=== PATIENT | female | born 1975 | race Caucasian/White ===

== ENCOUNTER 2020-07-09 08:21 | Day surgery (SDC) | payer MEDICAID ==
[2020-07-09] MEDS ORDERED: Propofol 200 MG/20 ML SDV ONE (08:37)
[2020-07-09] MEDS ORDERED: fentaNYL 250 MCG/5 ML SDV ONE ×2 (08:37→13:12)
[2020-07-09] MEDS ORDERED: Rocuronium 50 MG/5 ML Vial ONE ×2 (08:37→13:01)
[2020-07-09] MEDS ORDERED: Neostigmine Methylsulfate 1 MG/ML 5 ML Syringe ONE (08:37)
[2020-07-09] MEDS ORDERED: Ondansetron 4 MG/2 ML SDV ONE (08:37)
[2020-07-09] MEDS ORDERED: Dexamethasone 4 MG/ML SDV ONE (08:37)
[2020-07-09] MEDS ORDERED: Glycopyrrolate 0.2 MG/ML 5 ML MDV ONE (08:37)
[2020-07-09] MEDS: Nozin Nasal Sanitizer NASBOTH ONE (09:09)
[2020-07-09] MEDS: Lactated Ringers 1,000 ML IV SCH (09:16)
[2020-07-09] MEDS: Clindamycin Phosphate 900 MG in Sodium Chloride 0.9% 100 ML IV ONE (12:19)
[2020-07-09] MEDS ORDERED: Lactated Ringers 1,000 ML ONE (13:42)
[2020-07-09] MEDS ORDERED: Bupivacaine 0.5% 30 ML SDV ONE (13:53)
[2020-07-09] MEDS: Bupivacaine 0.5% 50 ML MDV ONE (14:50)
[2020-07-09] MEDS ORDERED: Ketorolac 60 MG/2 ML SDV IVPUSH ONE (15:09)
[2020-07-09] MEDS: Ketorolac 30 MG/ML SDV IVPUSH ONE (15:18)
[2020-07-09] MEDS: Acetaminophen/oxyCODONE 325-5 MG Tab PO PRN (16:07)
--- NOTE | 2020-07-18 13:05 | OR ---
DATE OF PROCEDURE: 07/09/2020 SURGEON: Titi Brooks MD PREOPERATIVE DIAGNOSES: 1. Left hip pain with femoral acetabular impingement, pincer, possible labral tear 2. Trochanteric bursitis. POSTOPERATIVE DIAGNOSES: 1. Femoral acetabular impingement with pincer 2. 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 Trochanteric bursitis. PROCEDURES: 1. Arthroscopy of left hip with rim resection and repair of labrum. 2. Lateral space arthroscopy with debridement of trochanteric bursa and evaluation of abductor tendon. 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 INDICATIONS: Enedelia is a 44-year-old female who has been having severe left hip pain and groin pain for the past month and a half to two months. This initially began after she was doing some house remodeling projects requiring a lot of walking and particularly going up and down stairs. She has failed conservative treatment with injections including intra-articular injection. Examination and imaging are consistent with intra-articular hip pain, acetabular pincer deformity, possible labral tear, as well as lateral hip pain with trochanteric bursitis, now presents for arthroscopic evaluation of the hip labrum with probable rim resection and repair of labrum. Also, planned evaluation of the lateral hip space including bursa and abductor tendons. Risks, benefits, potential complications of procedure were discussed. PROCEDURE IN DETAIL: After adequate anesthesia was obtained, patient was placed on the fracture table. A large padded perineal post was utilized. Right leg was placed with slight countertraction. Left hip was then prepped and draped in a sterile fashion. Traction was placed on the left hip until approximately 1 cm of distraction is obtained. This is actually obtained with relatively ease indicating some loss of labral seal and suction phenomenon. Using fluoroscopic guidance, a large spinal needle was advanced over the trochanter in anterolateral position and advanced into the joint without difficulty. A guidepin was then placed. A stab incision was made over the guidepin and a cannulated trocar was placed over the guidepin with the scope sheath. Camera was introduced. Anterolateral portal was then established using combination of direct visualization of the joint and fluoroscopy. Guidewire was placed through spinal needle. Stab incision was made in the skin and portal was established. A long Lime blade was utilized through this portal and anterior capsulotomy was performed. The scope was switched from the anterolateral to the accessory portal and capsulotomy was continued more laterally. The scope was switched back and hip was inspected. This revealed no articular damage in the central portion of the acetabulum. The acetabular labrum is actually relatively intact with some mild scuffing, however, probing reveals a fairly significant wave sign at the chondrolabral junction in the area of the pincer overhang. The articular cartilage of the femoral head is intact. The posterior labrum is intact. No evidence of any significant abnormalities in the fovea or with the ligament. A decision was made to proceed with detachment of the labrum, rim resection, and repair. Lime blade was used to detach the labrum from the edge of the acetabulum. This was allowed to fall down into the joint, and using a combination of shaver and ablation wand, soft tissues were cleared from the anterolateral edge of the acetabulum. A cornelius was then utilized to perform rim resection and this was taken back approximately 5 mm until the crossover sign was eliminated. Drill guides were then used to place drill holes in position for Gryphon anchors. Two anchors were placed along the acetabular edge. Piercing suture grasper was used to place one limb of each of the suture pairs around the labrum. These were then tied down using standard arthroscopic technique, placing the suture knot on the superior side of the labrum away from the joint surface. This resulted in a good approximation of the labrum, solid fixation, and elimination of the articular cartilage delamination. All loose fragments were removed. Fixation of the labrum was tested with a hook probe and found to be very stable. Traction was released and a good seal was obtained with the femoral head. The scope was then withdrawn. A spinal needle was then placed from the anterolateral portal down to the greater trochanter into the space beneath the tensor fascia. A guidepin was placed through this and a cannulated trocar was placed over the guidepin with the camera sheath. Camera was then placed. Greater trochanter was visualized. Accessory portal was established inferior to this and triangulating down onto the greater trochanter confirming position with fluoroscopy. Position was visualized, portal was established and the shaver was introduced, debriding the trochanteric bursa. This allowed complete visualization of the vastus lateralis attachment onto the trochanter as well as the gluteus medius attachment. There was evidence of inflammation, bursitis over the trochanter, but no gluteus tendon tear was noted. The scope was then withdrawn and port sites were closed in a standard fashion. Port sites and the joint were infiltrated with 0.5% Marcaine and sterile dressings were applied. The patient tolerated procedure very well. There were no complications, taken from the operating room in stable condition. Titi Brooks MD /[id number] AREN
== END 2020-07-09 16:45 | disposition home or self-care (01) ==
LOC: JP.SDS 08:21
PROVIDERS: ATTEND Specialist
DX: M25.852 Other specified joint disorders, left hip (principal); M70.62 Trochanteric bursitis, left hip; F41.9 Anxiety disorder, unspecified; E55.9 Vitamin D deficiency, unspecified; J45.20 Mild intermittent asthma, uncomplicated; F17.200 Nicotine dependence, unspecified, uncomplicated; K21.9 Gastro-esophageal reflux disease without esophagitis; F43.10 Post-traumatic stress disorder, unspecified; Z98.890 Other specified postprocedural states; Z98.84 Bariatric surgery status
CPT/HCPCS: 29916; 29999; 76000; A9270; C1713; C1769; J1100; J1885; J2405; J2704; J2710; J3010; J3490; J7120

== ENCOUNTER 2020-12-17 12:44 | Emergency (ER) | payer MEDICAID | END 2020-12-17 14:15 | disposition home or self-care (01) | LOC: JP.ED 12:44 | DX: Z53.21 Procedure and treatment not carried out due to patient leaving prior to being seen by health care provider (principal) ==

== ENCOUNTER 2021-02-16 17:13 | Emergency (ER) | payer MEDICAID ==
--- NOTE | 2021-02-16 18:29 | EDM.PDOC ---
ED HPI GENERAL MEDICAL PROBLEM - General Chief Complaint: Lower Extremity Injury/Pain Stated Complaint: SEVER HIP PAIN Time Seen by Provider: 02/16/21 18:19 Source of Information: Reports: Patient, Family (male significant other ), RN History Limitations: Reports: No Limitations - History of Present Illness INITIAL COMMENTS - FREE TEXT/NARRATIVE: Enedelia is a 45 yea old female whom present to ER with left hip pain for the last 2 days. Sandra has a history of left hip concerns with orthopedic surgery and steroid injections with improvement of hip pain. Sandra has left shoulder di scomfort currently on prednisone taper down to 10 mg last dose tonight or tomorrow. 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 Sandra has been taking Tylenol 10+ tablets per day for pain management with out improving or controlling pain. Sandra report pain has been fairly well controlled in left hip and shoulder. 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 Left Hip Pain Score (Numeric/FACES): 5 - Related Data Allergies Allergy/AdvReac Type Severity Reaction Status Date / Time amoxicillin Allergy Rash Verified 02/16/21 17:38 cariprazine Allergy Other Verified 02/16/21 17:38 ibuprofen Allergy Other Verified 02/16/21 17:38 moxifloxacin [From Avelox] Allergy Other Verified 02/16/21 17:38 naproxen Allergy Rash Verified 02/16/21 17:38 nortriptyline Allergy Other Verified 02/16/21 17:38 Penicillins Allergy Hives Verified 02/16/21 17:38 sulfamethoxazole Allergy Confusion Verified 02/16/21 17:38 [From Bactrim] trimethoprim [From Bactrim] Allergy Confusion Verified 02/16/21 17:38 Home Meds: Home Meds Albuterol/Ipratropium [Combivent Respimat] 2 puff IH Q4H PRN 06/20/20 [History] Cetirizine HCl/Pseudoephedrine [Zyrtec-D Tablet] 1 each PO DAILY PRN 06/20/20 [History] Fluticasone Propionate [Flonase] 2 spray NS DAILY 06/20/20 [History] Omeprazole 20 mg PO DAILY 06/20/20 [History] tiZANidine [Zanaflex] 4 mg PO Q8H PRN #36 tab 02/05/21 [Rx] Acetaminophen/oxyCODONE [Percocet 325-5 MG] 1 - 2 each PO Q6H PRN 2 Days #10 tab 02/16/21 [Rx] hydrOXYzine HCL [hydrOXYzine] 25 mg PO ASDIRECTED 02/16/21 [History] methocarbamoL [Methocarbamol] 500 mg PO TID PRN 5 Days #20 tablet 02/16/21 [Rx] predniSONE [Prednisone] 10 mg PO ASDIRECTED 02/16/21 [History] Past Medical History HEENT History: Reports: Impaired Vision Cardiovascular History: Reports: None Respiratory History: Reports: None Gastrointestinal History: Reports: GERD Genitourinary History: Reports: None 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 right hip pain Neurological History: Reports: None Psychiatric History: Reports: Anxiety, Depression Endocrine/Metabolic History: Reports: None Hematologic History: Reports: None Immunologic History: Reports: None Oncologic (Cancer) History: Reports: None Dermatologic History: Reports: None - Infectious Disease History Infectious Disease History: Reports: Chicken Pox - Past Surgical History Head Surgeries/Procedures: Reports: None Respiratory Surgical History: Reports: None GI Surgical History: Reports: Bariatric Procedure, EGD Female Surgical History: Reports: Hysterectomy Musculoskeletal Surgical History: Reports: Carpal Tunnel, Other (See Below) Other Musculoskeletal Surgeries/Procedures:: s/p L hip scope 07/09/20 Social & Family History - Family History Family Medical History: No Pertinent Family History - Tobacco Use Tobacco Use Status *Q: Heavy Tobacco User Years of Tobacco use: 11 Packs/Tins Daily: 1 - Caffeine Use Caffeine Use: Reports: Coffee - Recreational Drug Use Recreational Drug Use: No Review of Systems - Review of Systems Review Of Systems: Comprehensive ROS is negative, except as noted in HPI. ED EXAM, GENERAL - Physical Exam Exam: See Below Exam Limited By: No Limitations General Appearance: Alert, WD/WN, Moderate Distress (movement of left hip) Eye Exam: Bilateral Eye: Normal Inspection Ears: Normal External Exam, Hearing Grossly Normal Nose: Normal Inspection Throat/Mouth: Normal Inspection, Normal Voice, No Airway Compromise Head: Atraumatic Neck: Normal Inspection, Supple Respiratory/Chest: No Respiratory Distress, Normal Breath Sounds Cardiovascular: Normal Peripheral Pulses, Regular Rate, Rhythm GI/Abdominal: Normal Bowel Sounds, Soft, Non-Tender (Female) Exam: Deferred Rectal (Female) Exam: Deferred Back Exam: No: CVA Tenderness (R), CVA Tenderness (L) Extremities: Leg Pain (Acute left hip pain with point tenderness over hip flexor, lateral bursa and Si joint. ROM without increased pain unless ABduction) Neurological: Alert, Oriented, CN II-XII Intact, Normal Cognition Psychiatric: Normal Affect, Normal Mood Skin Exam: Warm, Dry, Intact, Normal Color Course - Vital Signs Last Recorded V/S: Last Vital Signs Temp 36.6 C 02/16/21 17:36 Pulse 89 02/16/21 17:36 Resp 20 02/16/21 17:36 BP 172/84 H 02/16/21 17:36 Pulse Ox 97 02/16/21 17:36 - Orders/Labs/Meds Meds: Medications Discontinued Medications Generic Name Dose Route Start Last Admin Trade Name Pedro PRN Reason Stop Dose Admin Dexamethasone 10 mg 02/16/21 18:39 02/16/21 18:56 Dexamethasone 4 Mg/Ml Sdv IM 02/16/21 18:40 10 mg ONETIME ONE Administration Hydromorphone HCl 1 mg 02/16/21 20:05 02/16/21 21:02 Hydromorphone 1 Mg/Ml Syringe IM 02/16/21 20:06 1 mg ONETIME ONE Administration Ketorolac Tromethamine 30 mg 02/16/21 18:39 02/16/21 18:54 Ketorolac 30 Mg/Ml Sdv IM 02/16/21 18:40 30 mg ONETIME ONE Administration Methocarbamol 1,000 mg 02/16/21 18:39 02/16/21 18:53 Methocarbamol 500 Mg Tab PO 02/16/21 18:40 1,000 mg ONETIME ONE Administration - Re-Assessments/Exams Free Text/Narrative Re-Assessment/Exam: Medications given for muscle strain and inflammation. Caution with NSAID use due to gastric bypass. Offered IM medications including Decadron 10mg IM, Toradol 30mg IM and Methocarbamol 1,000mg resulting in fatigue and mild improvement of pain. Sandra as asked to ambulate but pain was too severe to take more than 2-3 steps. Sandra reports needing something more significant for pain control. Sandra has been given narcotics in the past with out difficulty and denies use or abuse history. Offered Dilaudid 1mg IM for severe pain to control symptoms at this time. Discussed small prescription of narcotics for pain control over the weekend and follow-up with PCP and orthopedist on Thursday. 02/16/21 20:07 Pain is reported as improved but remains with movement. Recommended close follow-up with Orthopedist this coming week for further evaluation and treatment options. Decadron 10mg IM given during ER visit but recent prednisone taper. Additional steroids not offered at this time. NSAIDs not offered due to gastric bypass history. 02/16/21 21:52 Departure - Departure Time of Disposition: 21:54 Disposition: Home, Self-Care 01 Clinical Impression: Left hip pain, SI (sacroiliac) joint inflammation, Hip bursitis, left, Tendinitis of left hip flexor - Discharge Information Prescriptions: methocarbamoL [Methocarbamol] 500 mg PO TID PRN 5 Days #20 tablet PRN Reason: spams Acetaminophen/oxyCODONE [Percocet 325-5 MG] 1 - 2 each PO Q6H PRN 2 Days #10 tab PRN Reason: Pain (Severe 7-10) Instructions: Piriformis Syndrome, Hip Pain, Piriformis Syndrome Rehab- SportsMed, Tendinitis, Hip Bursitis, Musculoskeletal Pain Referrals: Deborah Winkler DO [Primary Care Provider] - Forms: ED Department Discharge Additional Instructions: 1. Continue current medications as prescribed. 2. Methocarbamol 500mg TID for severe muscle spasms and pain as needed. 3. Percocet 1-2 tablets as needed for severe pain #10 [facility]. 4. Ice Heat per comfort. 5. Use walker to ensure not further injury or fall. 6. Call Orthopedic clinic Thursday am for follow-up appointment regarding left hip pain and severity. Sepsis Event Note (ED) - Evaluation Sepsis Screening Result: No Definite Risk - Focused Exam Vital Signs: Vital Signs Temp Pulse Resp BP Pulse Ox 02/16/21 17:36 36.6 C 89 20 172/84 H 97 02/16/21 17:28 36.6 C 89 20 172/84 H 97
[2021-02-16] MEDS ORDERED: Dexamethasone 4 MG/ML SDV IM ONE (18:39)
[2021-02-16] MEDS ORDERED: Ketorolac 30 MG/ML SDV IM ONE (18:39)
[2021-02-16] MEDS ORDERED: Methocarbamol 500 MG Tab PO ONE (18:39)
[2021-02-16] MEDS ORDERED: HYDROmorphone 1 MG/ML Syringe IM ONE (20:05)
--- NOTE | 2021-02-16 21:41 | CRLCR ---
For Patients: As a result of the Cures Act, medical imaging exams and procedure reports are released immediately into your electronic medical record. You may view this report before your referring provider. If you have questions, please contact your health care provider. Indication: Acute left hip pain Technique: AP pelvis and left hip views Comparison: No comparison Findings: Normal alignment. No fractures. No acute osseous abnormalities. Impression: No acute fracture. Dictated by Taylor Raygoza MD @ 02/16/2021 9:38:[address] Taylor Raygoza @ Feb 16 2021 9:38PM
== END 2021-02-16 22:09 | disposition home or self-care (01) ==
LOC: JP.ED 17:13
DX: M70.72 Other bursitis of hip, left hip (principal); M46.1 Sacroiliitis, not elsewhere classified; K21.9 Gastro-esophageal reflux disease without esophagitis; Z72.0 Tobacco use; Z88.0 Allergy status to penicillin; Z88.2 Allergy status to sulfonamides; Z88.1 Allergy status to other antibiotic agents; Z88.6 Allergy status to analgesic agent; Z79.899 Other long term (current) drug therapy; Z88.8 Allergy status to other drugs, medicaments and biological substances
CPT/HCPCS: 73502; 96372; 99283; A9270; J1100; J1170; J1885

== ENCOUNTER 2021-04-06 10:57 | Emergency (ER) | payer MEDICAID ==
--- NOTE | 2021-04-06 11:54 | EDM.PDOC ---
ED HPI GENERAL MEDICAL PROBLEM - General Chief Complaint: Lower Extremity Injury/Pain Stated Complaint: LEFT LEG PAIN/FALL Time Seen by Provider: 04/06/21 11:40 Source of Information: Reports: Patient History Limitations: Reports: No Limitations - History of Present Illness INITIAL COMMENTS - FREE TEXT/NARRATIVE: Patient states she fell in a hole on 04/03/2021. She was seen in walk-in. Had her left ankle x-rayed. This demonstrated no lesion or fracture. Today patient comes in with lateral aspect mid fibula pain. Stating she is unable to bear weight. She is currently using [id number] medications for pain. Patient does have a walking boot. She was not wearing it when the pain started. Onset: Today, Sudden Duration: Getting Worse Location: Reports: Lower Extremity, Left Quality: Reports: Ache Severity: Moderate Improves with: Reports: Rest Worsens with: Reports: Movement Context: Reports: Trauma (Original injury 04/03/2021) left lower leg Pain Score (Numeric/FACES): 5 - Related Data Allergies Allergy/AdvReac Type Severity Reaction Status Date / Time amoxicillin Allergy Rash Verified 04/06/21 11:22 cariprazine Allergy Other Verified 04/06/21 11:22 ibuprofen Allergy Other Verified 04/06/21 11:22 moxifloxacin [From Avelox] Allergy Other Verified 04/06/21 11:22 naproxen Allergy Rash Verified 04/06/21 11:22 nortriptyline Allergy Other Verified 04/06/21 11:22 Penicillins Allergy Hives Verified 04/06/21 11:22 sulfamethoxazole Allergy Confusion Verified 04/06/21 11:22 [From Bactrim] trimethoprim [From Bactrim] Allergy Confusion Verified 04/06/21 11:22 Home Meds: Home Meds Albuterol/Ipratropium [Combivent Respimat] 2 puff IH Q4H PRN 06/20/20 [History] Cetirizine HCl/Pseudoephedrine [Zyrtec-D Tablet] 1 each PO DAILY PRN 06/20/20 [History] Fluticasone Propionate [Flonase] 2 spray NS DAILY 06/20/20 [History] Omeprazole 20 mg PO DAILY 06/20/20 [History] tiZANidine [Zanaflex] 4 mg PO Q8H PRN #36 tab 02/05/21 [Rx] hydrOXYzine HCL [hydrOXYzine] 25 mg PO TID 02/16/21 [History] Escitalopram Oxalate [Lexapro] 10 mg PO DAILY 02/20/21 [History] Prochlorperazine [Compazine] 5 mg PO Q8H 02/20/21 [History] ondansetron HCL [Zofran] 4 mg PO Q8H 02/20/21 [History] methocarbamoL [Methocarbamol] 500 mg PO TID PRN #21 tablet 03/04/21 [Rx] traMADol [Ultram] 50 mg PO Q6H PRN 04/06/21 [History] Past Medical History HEENT History: Reports: Impaired Vision Cardiovascular History: Reports: None Respiratory History: Reports: None Gastrointestinal History: Reports: GERD Genitourinary History: Reports: None 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 right hip pain Neurological History: Reports: None Psychiatric History: Reports: Anxiety, Depression Endocrine/Metabolic History: Reports: None Hematologic History: Reports: None Immunologic History: Reports: None Oncologic (Cancer) History: Reports: None Dermatologic History: Reports: None - Infectious Disease History Infectious Disease History: Reports: Chicken Pox - Past Surgical History Head Surgeries/Procedures: Reports: None HEENT Surgical History: Reports: None Cardiovascular Surgical History: Reports: None Respiratory Surgical History: Reports: None GI Surgical History: Reports: Bariatric Procedure, EGD Female Surgical History: Reports: Hysterectomy Musculoskeletal Surgical History: Reports: Carpal Tunnel, Other (See Below) Other Musculoskeletal Surgeries/Procedures:: s/p L hip scope 07/09/20 Social & Family History - Family History Family Medical History: No Pertinent Family History - Tobacco Use Tobacco Use Status *Q: Current Every Day Tobacco User Years of Tobacco use: 20 Packs/Tins Daily: 0.5 - Caffeine Use Caffeine Use: Reports: Coffee - Recreational Drug Use Recreational Drug Use: No Review of Systems - Review of Systems Review Of Systems: See Below Musculoskeletal: Reports: Leg Pain (Left lateral) Skin: Reports: No Symptoms Neurological: Reports: No Symptoms ED EXAM, GENERAL - Physical Exam Exam: See Below Exam Limited By: No Limitations General Appearance: Alert, WD/WN Peripheral Pulses: 2+: Dorsalis Pedis (L) Extremities: Normal Inspection, Leg Pain (Left lateral mid fibular), Limited Range of Motion. No: Normal Range of Motion (Difficulty with range of motion at the ankle. Able to flex and dorsiflex not able to rotate without pain), Joint Swelling Neurological: Alert, Oriented, CN II-XII Intact, Normal Cognition. No: Normal Gait (Utilizing walking boot and crutches) Skin Exam: Warm, Dry, Intact Course - Vital Signs Last Recorded V/S: Last Vital Signs Temp 36.3 C 04/06/21 11:31 Pulse 59 L 04/06/21 11:31 Resp 14 04/06/21 11:31 BP 150/58 H 04/06/21 11:31 Pulse Ox 96 04/06/21 11:31 - Orders/Labs/Meds Orders: Active Orders 24 hr Category Date Time Status Tibia Fibula Lt [CR] Stat Exams 04/06/21 11:46 Taken Tib-fib x-ray without evidence of fracture dislocation or abnormality. - Re-Assessments/Exams Free Text/Narrative Re-Assessment/Exam: 04/06/21 13:07 Reviewed x-ray results with patient. Encourage patient to continue to wear her boot. If she continues to have pain follow-up with her primary care provider for further evaluation. May use [id number] Tylenol/ibuprofen for pain. May use heat or ice whichever is comfortable for the patient. Elevate when possible. Weightbearing as tolerated. If it causes pain do not do it. Departure - Departure Time of Disposition: 13:20 Disposition: Home, Self-Care 01 Condition: Good Clinical Impression: Muscle strain - Discharge Information *PRESCRIPTION DRUG MONITORING PROGRAM REVIEWED*: Not Applicable *COPY OF PRESCRIPTION DRUG MONITORING REPORT IN PATIENT LORRAINE: Not Applicable Instructions: Muscle Strain, [id number] Referrals: Deborah Winkler DO [Primary Care Provider] - Forms: ED Department Discharge Additional Instructions: Wear walking boot when up and ambulatory. May weight-bear as tolerated. Let pain be guide. If it hurts do not do it. Follow-up with primary care provider if continue to have pain for further evaluation. Sepsis Event Note (ED) - Evaluation Sepsis Screening Result: No Definite Risk - My Orders Last 24 Hours: My Active Orders 04/06/21 11:46 Tibia Fibula Lt [CR] Stat - Assessment/Plan Last 24 Hours: My Active Orders 04/06/21 11:46 Tibia Fibula Lt [CR] Stat Assessment:: Muscle strain Plan: Home with self-care. Treat symptoms. May utilize [id number] for pain control. Follow-up with primary care provider if you continue to have problems for further evaluation.
--- NOTE | 2021-04-08 09:24 | CR ---
Tibia Fibula Lt CLINICAL HISTORY: Injury FINDINGS: Two views show no evidence of fracture or bone destruction. No soft tissue abnormality is seen. Impression: Negative
== END 2021-04-06 13:21 | disposition home or self-care (01) ==
LOC: JP.ED 10:57
DX: S86.912A Strain of unspecified muscle(s) and tendon(s) at lower leg level, left leg, initial encounter (principal); K21.9 Gastro-esophageal reflux disease without esophagitis; Z88.1 Allergy status to other antibiotic agents; Z88.8 Allergy status to other drugs, medicaments and biological substances; Z88.6 Allergy status to analgesic agent; Z88.0 Allergy status to penicillin; Z88.2 Allergy status to sulfonamides; Z79.899 Other long term (current) drug therapy; Z72.0 Tobacco use; W17.2XXA Fall into hole, initial encounter
CPT/HCPCS: 73590-26-LT; 73590-LT; 99283-25

== ENCOUNTER 2021-05-20 08:35 | Day surgery (SDC) | payer MEDICAID ==
[~2021-05-20 08:35] MED LIST: Bupivacaine 0.5% 50 ML MDV ONE
[2021-05-20] MEDS ORDERED: fentaNYL 250 MCG/5 ML SDV ONE ×2 (08:49→12:34)
[2021-05-20] MEDS ORDERED: Ondansetron 4 MG/2 ML SDV ONE (08:50)
[2021-05-20] MEDS ORDERED: Glycopyrrolate 0.2 MG/ML 5 ML MDV ONE (08:50)
[2021-05-20] MEDS ORDERED: Propofol 200 MG/20 ML SDV ONE (08:50)
[2021-05-20] MEDS ORDERED: Neostigmine Methylsulfate 1 MG/ML 5 ML Syringe ONE (08:50)
[2021-05-20] MEDS ORDERED: Dexamethasone 4 MG/ML SDV ONE (08:50)
[2021-05-20] MEDS ORDERED: Rocuronium 50 MG/5 ML Vial ONE ×2 (08:50→13:24)
[2021-05-20] MEDS ORDERED: Lactated Ringers 1,000 ML IV SCH (09:00)
[2021-05-20] MEDS ORDERED: Nozin Nasal Sanitizer NASBOTH ONE (09:00)
[2021-05-20] MEDS ORDERED: Clindamycin Phosphate 900 MG in Sodium Chloride 0.9% 100 ML IV ONE (09:45)
[2021-05-20] MEDS ORDERED: traMADol 50 MG Tab PO SCH (10:00)
[2021-05-20] MEDS ORDERED: Acetaminophen/HYDROcodone 325-5 MG Tab PO ONE (14:30)
[2021-05-20] MEDS ORDERED: Acetaminophen/HYDROcodone 325-5 MG Tab PO PRN (14:43)
[2021-05-20] MEDS ORDERED: Morphine 2 MG/ML SYRINGE IVPUSH ONE (15:38)
--- NOTE | 2021-05-22 15:13 | OR ---
DATE OF PROCEDURE: 05/20/2021 SURGEON: Titi Brooks MD PREOPERATIVE DIAGNOSIS: Painful snapping hip syndrome, left hip. POSTOPERATIVE DIAGNOSES: 1. Painful snapping hip syndrome, left hip. 2. Synovitis, left hip joint. 3. Trochanteric bursitis, left hip. PROCEDURE PERFORMED: Arthroscopy of left hip with iliotibial band release. ANESTHESIA ATTENDING: DEMETRIUS Benavidez ANESTHESIA: General. INDICATIONS: Enedelia is a 45-year-old female with a history of recurrent left hip pain. She had previously undergone arthroscopy with debridement of a small labral tear. She is now having persistent pain in the hip with palpable snapping of the IT band and tensor fascia over the greater trochanter. She has failed conservative treatment. She now presents for reevaluation of the labrum and release of the IT band. Risks, benefits, and potential complications of the procedure were discussed. DESCRIPTION OF PROCEDURE: After adequate anesthesia was obtained, the patient was placed on the fracture table. A large padded perineal post was utilized. Mild countertraction was placed through the right hip. The left hip was prepped and draped in a sterile fashion. Traction was placed on the left hip, creating approximately 1 cm of distraction. A long spinal needle was advanced from the anterolateral portal just over the trochanter into the joint and confirmed by fluoroscopy. Guidewire was placed through the needle. A small stab incision was made in the skin, and scope cannula was placed over the guidewire into the hip joint. The scope was introduced, and a second anterolateral accessory portal was established under fluoroscopic guidance and direct visualization in the joint. A guide pin was placed. A small stab incision was made and a cannula then advanced over the guide pin into the joint. A long Cantwell blade was used to perform a capsulotomy for further access. Evaluation of the labrum revealed no new tear. Labrum was intact. Articular surface was intact. There was a small area just in the anterior aspect of the joint with some fibrocartilage at the chondrolabral junction without exposed bone. The articular surface of the femoral head was intact. Synovitis was present throughout the joint capsule. Scope was switched between the lateral and the accessory portals. The remainder of the hip joint was visualized with no other abnormalities. Scope was withdrawn. A blunt obturator was then utilized through the anterolateral portal down to the trochanter. The scope was then advanced along this tract, and a third accessory portal was placed distal to the trochanter in line with the femur. A guide pin was advanced down over the trochanter. A tract was developed, and the shaver was then introduced, allowing visualization of the greater trochanter. Moderate inflammation was present in the region of the trochanteric bursa. The abductor tendon was intact with no evidence of a tear. Vastus lateralis was visualized and was normal in appearance. Using the Mitek radiofrequency ablation, a longitudinal incision was made in the tensor fascia under direct visualization from approximately 1.5 cm above the trochanter to 1 cm to 1.5 cm below the trochanter. This was confirmed both by direct visualization and by fluoroscopy. Once the tensor had been divided, a small anterior incision was then created using the ablation wand. A posterior incision was then developed for a distance of approximately 1.5 cm. A shaver was used to debride the flaps created by the cruciate-shaped incisions, creating a window in the IT band. A portion of the trochanteric bursa was debrided and the remainder of the abductor tendons evaluated, which were normal in appearance. Bleeding was controlled using radiofrequency ablation. The scope was withdrawn. The port sites were closed using 3-0 Monocryl and Steri-Strips, and the wounds were infiltrated with 0.5% Marcaine. Sterile dressing was applied. The patient tolerated the procedure very well. There were no complications. She was taken from the operating room in stable condition. Titi Brooks MD /[id number] [facility]ITALJessie
== END 2021-05-20 17:05 | disposition home or self-care (01) ==
LOC: JP.SDS 08:35
PROVIDERS: ATTEND Specialist
DX: M76.32 Iliotibial band syndrome, left leg (principal); M65.88 Other synovitis and tenosynovitis, other site; M70.62 Trochanteric bursitis, left hip; F17.210 Nicotine dependence, cigarettes, uncomplicated; J45.909 Unspecified asthma, uncomplicated; K21.9 Gastro-esophageal reflux disease without esophagitis; Z88.1 Allergy status to other antibiotic agents; Z88.0 Allergy status to penicillin; Z88.8 Allergy status to other drugs, medicaments and biological substances; Z98.890 Other specified postprocedural states
CPT/HCPCS: 36415; 76000; 80053; 85027; A9270-GY; C1769; J1100; J2270; J2405; J2704; J2710; J3010; J3490; J7120

== ENCOUNTER 2024-01-11 09:16 | Day surgery (SDC) | payer MEDICAID ==
[2024-01-11 09:49] LABS: BASOPHILS PERCENT AUTO 0.3 % (0.1-1.3); EOSINOPHILS ABSOLUTE AUTO 0.09 K/uL (0.00-0.40); EOSINOPHILS PERCENT AUTO 1.4 % (0.0-5.4); HEMATOCRIT 40.5 % (34.3-46.0); HEMOGLOBIN 13.5 g/dL (11.2-15.5); IMMATURE GRAN PERCENT AUTO 0.3 % (0.0-0.7); LYMPHOCYTES ABSOLUTE AUTO 1.76 K/uL (0.8-3.3); LYMPHOCYTES PERCENT AUTO 27.2 % (11.4-47.7); MEAN CORPUSCULAR HEMOGLOBIN 30.5 pg (31.6-35.5); MEAN CORPUSCULAR HGB CONC 33.3 g/dL (31.6-35.5); MEAN CORPUSCULAR VOLUME 91.4 fL (81.4-99.0); MONOCYTES PERCENT AUTO 7.7 % (3.3-12.6); NEUTROPHILS ABSOLUTE AUTO 4.07 K/uL (1.0-7.6); NEUTROPHILS PERCENT AUTO 63.1 % (40.0-78.1); PLATELET COUNT,PLT 317 K/uL (130-375); RED BLOOD CELL COUNT 4.43 M/uL (3.77-5.24); WHITE BLOOD CELL COUNT,WBC 6.5 K/uL (3.2-11.0)
[2024-01-11 09:50] LABS: BASOPHILS ABSOLUTE AUTO 0.02 K/uL (0.00-0.10); IMMATURE GRAN ABSOLUTE AUTO 0.02 K/uL (0.00-0.23)
[2024-01-11] MEDS: Lactated Ringers 1,000 ML IV SCH (10:01)
[2024-01-11] MEDS: Nozin Nasal Sanitizer NASBOTH ONE (10:01)
[2024-01-11 10:09] LABS: A/G RATIO 0.9 (1.2-2.2); ALANINE AMINOTRANSFERASE,ALT 18 U/L (12-78); ALBUMIN 3.4 g/dL (3.4-5.0); ALKALINE PHOSPHATASE 56 U/L (46-116); ASPARTATE AMNIOTRANSFERASE,AST 20 U/L (15-37); BILIRUBIN TOTAL 0.3 mg/dL (0.2-1.0); BLOOD UREA NITROGEN,BUN 15 mg/dL (7-18); CALCIUM 8.9 mg/dL (8.5-10.1); CARBON DIOXIDE,CO2 25 mmol/L (21-32); CHLORIDE,CL 103 mmol/L (100-108); CREATININE 0.8 mg/dL (0.6-1.0); EST CRCL DRUG DOSING (CG) 67.28 mL/min; ESTIMATED GFR 90 mL/min (>60); GLUCOSE RANDOM 98 mg/dL (74-106); SODIUM,NA 138 mmol/L (140-148)
[2024-01-11] MEDS: Albuterol/Ipratropium 3.0-0.5 MG/3 ML Neb Soln NEB ONE (11:05)
[2024-01-11] MEDS ORDERED: fentaNYL 250 MCG/5 ML SDV ONE ×2 (12:21→14:10)
[2024-01-11] MEDS ORDERED: Dexamethasone 4 MG/ML SDV ONE (12:22)
[2024-01-11] MEDS ORDERED: Ondansetron 4 MG/2 ML SDV ONE (12:22)
[2024-01-11] MEDS ORDERED: Neostigmine Methylsulfate 10 MG/10 ML MDV ONE (12:22)
[2024-01-11] MEDS ORDERED: Glycopyrrolate 0.2 MG/ML 5 ML MDV ONE (12:22)
[2024-01-11] MEDS ORDERED: Rocuronium 50 MG/5 ML Vial ONE ×2 (12:22→14:10)
[2024-01-11] MEDS ORDERED: Propofol 200 MG/20 ML SDV ONE (12:22)
[2024-01-11] MEDS: Clindamycin in 0.9 % Sod Chlor 900 MG in Premix Bag 1 BAG IV ONE (13:30)
[2024-01-11] MEDS: Bupivacaine 0.5% 50 ML MDV ONE (14:33)
[2024-01-11] MEDS ORDERED: Lactated Ringers 1,000 ML ONE (15:07)
[2024-01-11] MEDS: Acetaminophen/oxyCODONE 325-5 MG Tab PO PRN (16:18)
== END 2024-01-11 17:00 | disposition home or self-care (01) ==
LOC: JP.SDS 09:16
PROVIDERS: ATTEND Specialist
DX: M25.852 Other specified joint disorders, left hip (principal); M94.252 Chondromalacia, left hip; J45.909 Unspecified asthma, uncomplicated; K21.9 Gastro-esophageal reflux disease without esophagitis; E66.01 Morbid (severe) obesity due to excess calories; F17.200 Nicotine dependence, unspecified, uncomplicated; Z88.0 Allergy status to penicillin; Z88.1 Allergy status to other antibiotic agents; Z91.09 Other allergy status, other than to drugs and biological substances
CPT/HCPCS: 29862; 29914; 36415; 80053; 85025; 94640; A9270; J0665; J0736; J1100; J2405; J2704; J2710; J3010; J3490; J7120; J7620

== ENCOUNTER 2024-05-09 07:56 | Inpatient (IN) | payer MEDICAID, OTHER ==
[2024-05-09 08:28] LABS: BASOPHILS ABSOLUTE AUTO 0.03 K/uL (0.00-0.10); BASOPHILS PERCENT AUTO 0.6 % (0.1-1.3); EOSINOPHILS ABSOLUTE AUTO 0.12 K/uL (0.00-0.40); EOSINOPHILS PERCENT AUTO 2.4 % (0.0-5.4); HEMATOCRIT 42.2 % (34.3-46.0); HEMOGLOBIN 13.9 g/dL (11.2-15.5); IMMATURE GRAN PERCENT AUTO 0.2 % (0.0-0.7); LYMPHOCYTES ABSOLUTE AUTO 1.48 K/uL (0.8-3.3); LYMPHOCYTES PERCENT AUTO 29.9 % (11.4-47.7); MEAN CORPUSCULAR HGB CONC 32.9 g/dL (31.6-35.5); MEAN CORPUSCULAR VOLUME 94.2 fL (81.4-99.0); MONOCYTES PERCENT AUTO 6.1 % (3.3-12.6); NEUTROPHILS ABSOLUTE AUTO 3.01 K/uL (1.0-7.6); NEUTROPHILS PERCENT AUTO 60.8 % (40.0-78.1); PLATELET COUNT,PLT 356 K/uL (130-375); RED BLOOD CELL COUNT 4.48 M/uL (3.77-5.24)
[2024-05-09 08:29] LABS: IMMATURE GRAN ABSOLUTE AUTO 0.01 K/uL (0.00-0.23)
[2024-05-09] MEDS ORDERED: Midazolam 1 MG/ML 2 ML SDV ONE ×3 (08:31→14:10)
[2024-05-09] MEDS ORDERED: Propofol 200 MG/20 ML SDV ONE ×4 (08:31→15:02)
[2024-05-09] MEDS ORDERED: fentaNYL 100 MCG/2 ML SDV ONE ×2 (08:31→14:51)
[2024-05-09 08:48] LABS: A/G RATIO 1.1 (1.2-2.2); ALANINE AMINOTRANSFERASE,ALT 25 U/L (12-78); ALBUMIN 3.9 g/dL (3.4-5.0); ALKALINE PHOSPHATASE 65 U/L (46-116); ANION GAP 9.9 mmol/L (5.0-14.0); ASPARTATE AMNIOTRANSFERASE,AST 24 U/L (15-37); BILIRUBIN TOTAL 0.5 mg/dL (0.2-1.0); BLOOD UREA NITROGEN,BUN 11 mg/dL (7-18); CALCIUM 9.4 mg/dL (8.5-10.1); CARBON DIOXIDE,CO2 24 mmol/L (21-32); CHLORIDE,CL 106 mmol/L (100-108); CREATININE 0.7 mg/dL (0.6-1.0); EST CRCL DRUG DOSING (CG) 76.89 mL/min; ESTIMATED GFR 106 mL/min (>60); GLUCOSE RANDOM 101 mg/dL (74-106); POTASSIUM,K 4.2 mmol/L (3.6-5.2); PROTEIN TOTAL,TP 7.5 g/dL (6.4-8.2); SODIUM,NA 140 mmol/L (140-148)
[2024-05-09] MEDS: Nozin Nasal Sanitizer NASBOTH SCH ×2 (09:10→21:31)
[2024-05-09] MEDS: Lactated Ringers 1,000 ML IV SCH (09:11)
[2024-05-09] MEDS ORDERED: oxyCODONE 5 MG Tab PO PRN ×2 (10:16→19:25)
[2024-05-09] MEDS ORDERED: Magnesium Hydroxide 400 MG/5 ML Susp 30 ML Cup PO PRN (10:16)
[2024-05-09] MEDS ORDERED: Ondansetron 4 MG Tab.DIS PO PRN (10:18)
[2024-05-09] MEDS: ceFAZolin 2 GM in Premix Bag 1 BAG IV ONE (12:20)
[2024-05-09] MEDS ORDERED: ePHEDrine 50 MG/ML SDV ONE (12:40)
[2024-05-09] MEDS: Tranexamic Acid 950 MG in Sodium Chloride 0.9% 50 ML IV ONE (12:50)
[2024-05-09] MEDS: Bupivacaine 0.5% 50 ML MDV ONE (13:10)
[2024-05-09] MEDS ORDERED: Ondansetron 4 MG/2 ML SDV ONE (14:52)
[2024-05-09] MEDS: Morphine 2 MG/ML SYRINGE IV PRN (15:53)
[2024-05-09] MEDS: oxyCODONE 5 MG Tab PO PRN ×2 (16:34→21:28)
[2024-05-09] MEDS: ceFAZolin 2 GM in Premix Bag 1 BAG IV SCH (17:14)
[2024-05-09] MEDS: Acetaminophen 325 MG Tab PO SCH (17:14)
[2024-05-09] MEDS ORDERED: Morphine 2 MG/ML SYRINGE IV PRN (18:20)
[2024-05-09] MEDS: Morphine 2 MG/ML SYRINGE IVPUSH ONE (18:29)
[2024-05-09] MEDS: Ondansetron 4 MG/2 ML SDV IVPUSH PRN (19:12)
[2024-05-09] MEDS ORDERED: Naloxone 0.4 MG/ML SDV IVPUSH PRN (19:24)
[2024-05-09] MEDS: HYDROmorphone 1 MG/ML Syringe IVPUSH ONE (19:26)
[2024-05-09] MEDS: Sodium Chloride 0.9% 1,000 ML IV SCH (20:20)
[2024-05-09] MEDS: HYDROmorphone 0.5 MG/0.5 ML Syringe IVPUSH PRN (20:23)
[2024-05-10 05:56] LABS: HEMATOCRIT 31.2 % (34.3-46.0); HEMOGLOBIN 10.1 g/dL (11.2-15.5); MEAN CORPUSCULAR HEMOGLOBIN 30.9 pg (31.6-35.5); MEAN CORPUSCULAR HGB CONC 32.4 g/dL (31.6-35.5); MEAN CORPUSCULAR VOLUME 95.4 fL (81.4-99.0); RED BLOOD CELL COUNT 3.27 M/uL (3.77-5.24)
[2024-05-10] MEDS: Ketorolac 30 MG/ML SDV IVPUSH ONE (08:25)
[2024-05-10] MEDS: Cholecalciferol (Vitamin D3) 25 MCG Tab PO SCH (08:26)
[2024-05-10] MEDS: Ferrous Fumarate/Vitamin C 200-125 MG Tab PO SCH (08:26)
[2024-05-10] MEDS: Aspirin 325 MG Tab.EC PO SCH (08:26)
[2024-05-10] MEDS ORDERED: FLU (Fluarix Triv) TS24-25(6MOS UP)/PF 45 MCG/0.5 ML Syringe IM ONE (12:00)
[2024-05-10] MEDS: Docusate Sodium 100 MG Cap PO PRN (17:21)
[2024-05-10] MEDS: tiZANidine 2 MG Tab PO PRN (20:49)
[2024-05-11] MEDS ORDERED: FLU (Fluarix Triv) TS24-25(6MOS UP)/PF 45 MCG/0.5 ML Syringe IM ONE (11:00)
[2024-05-11] MEDS ORDERED: Sodium Chloride 0.9% 10 ML Syringe IV PRN (14:37)
[2024-05-12] MEDS: FLU (Fluarix Triv) TS24-25(6MOS UP)/PF 45 MCG/0.5 ML Syringe IM ONE (09:00)
== END 2024-05-12 11:44 | disposition home or self-care (01) | DRG 470 ==
LOC: JP.SDS 07:56 → JP.MS 10:16 → JP.SDS 05-10 13:28
PROVIDERS: ADMIT Specialist; ATTEND Specialist
PROC: 0SRB0JZ Replacement of Left Hip Joint with Synthetic Substitute, Open Approach (ICD-10-PCS; principal; 2024-05-10)
DX: M16.12 Unilateral primary osteoarthritis, left hip (principal); F43.10 Post-traumatic stress disorder, unspecified; K21.9 Gastro-esophageal reflux disease without esophagitis; Z79.82 Long term (current) use of aspirin; Z79.899 Other long term (current) drug therapy
CPT/HCPCS: 01214-QZ; 36415; 72170; 72170-26; 73501-26-LT; 73501-LT; 80053; 85025; 85027; 90656; 93005; 93010; 97110-GP; 97116-GP; 97161-GP; 97165-GO; 97530-GP; 97535-GO; A9270-GY; C1713; C1776; G0008; J0665; J0690; J1171; J1885; J2250; J2270; J2405; J2704; J3010; J3490; J7030; J7120